=== PATIENT | male | born 1980 ===

== ENCOUNTER 2024-03-31 21:09 | Inpatient (IN) | payer OTHER, SELFPAY ==
--- NOTE | 2024-03-31 21:12 | ECG_ITS ---
Test Date: 2024-03-31 22:02:46 Measurements Intervals [place] Rate: 80 P: 70 WI: 268 QRS: -68 QRSD: 188 T: 77 QT: 479 QTc: 553 Interpretive Statements SINUS RHYTHM WITH FIRST DEGREE AV BLOCK WITH FREQUENT VENTRICULAR PREMATURE COMPLEXES RIGHT BUNDLE BRANCH BLOCK LEFT ANTERIOR FASCICULAR BLOCK LEFT VENTRICULAR HYPERTROPHY AND ST-T CHANGE ABNORMAL ECG No previous ECG available for comparison Electronically Signed On 04-01-2024 06:01:39 CDT by Ervin Dorman D.O.
[2024-03-31 21:55] VITALS: BP 162/100; PULSE 88; RESP 20; TEMP 36.4; O2SAT 98; BMI 36.2
--- NOTE | 2024-03-31 22:31 | ADMGEN ---
This patient, Rock Brunson, was admitted to IMU Room 209-01. Patient/family oriented to hospital policies and general routines including ID bracelet, bed and alarms, visiting hours, pain management, procedures, bathroom and other care routines, personal items, smoking policy, room service/diet, and visiting hours. Information on how to activate the Rapid Response Team has been discussed. Patient/Family are encouraged to report perceived risks to care and to ask questions if they do not understand what they are told or what they should do.
[2024-03-31 22:39] LABS: Basophils Percent Auto 0.2 % (0.2-1.2); Eosinophils Percent Auto 0.1 % (0-4.4); Hematocrit 35.2 % (42.0-52.0); Hemoglobin 11.3 g/dL (14.0-18.0); Immature Granulocyte Absolute 0.13 K/mm3 (0.00-0.031); Immature Granulocyte Percent A 1.1 % (0-0.5); Lymphocytes Percent Auto 10.9 % (18.3-44.2); Mean Corpuscular HGB Conc 32.1 g/dl (32-36); Mean Corpuscular Hemoglobin 26.6 pg (26-34); Mean Corpuscular Volume 82.8 fl (80-100); Mean Platelet Volume 10.8 fl (7.4-10.4); Monocytes Absolute Auto 0.5 K/mm3 (0.1-0.6); Neutrophils Percent Auto 83.7 % (45.5-73.1); Platelet Count Result 255 k/mm3 (150-375); Red Blood Count 4.25 M/mm3 (4.6-6.20); Red Cell Distribution Width 15.5 % (11.5-14.5); White Blood Count 11.9 K/mm3 (4.5-10.0)
[2024-03-31 22:52] LABS: Anion Gap 10 mmol/L (4-12); Blood Urea Nitrogen 32 mg/dL (9-20); Calcium 8.8 mg/dL (8.4-10.2); Carbon Dioxide 23 mmol/L (22-30); Chloride 104 mmol/L (98-107); Estimated CRCL calculation 68 ml/min; Estimated Glomerular Filt Rate 51; Glucose 179 mg/dL (65-110); Potassium 3.6 mmol/L (3.4-5.0); Sodium 137 mmol/L (137-145)
[2024-03-31 22:54] LABS: INR 1.2; Prothrombin Time 15.7 Seconds (11.1-14.7)
[2024-03-31 22:55] LABS: Partial Thromboplastin Time 39.7 Seconds (22.3-36.8)
[2024-03-31 23:00] VITALS: PULSE 94
--- NOTE | 2024-03-31 23:21 | PM.IMHP ---
H&P: HPI History of Present Illness Date/Time: 03/31/24 23:21 Chief Complaint: Non STEMI Narrative: 43-year-old male past medical history of pre diabetes, obesity, untreated obstructive sleep apnea, CHF, non alcoholic steatohepatitis with cirrhosis, chronic kidney disease essential hypertension, hypothyroidism and anemia who presented to the ER at [place] due to chest pain. Patient reports he started having substernal chest pain that was 11/10 in intensity and accompanied by diaphoresis. The pain woken from sleep. He got up and stood in front of the fan but when his symptoms had persisted for about 30 minutes he decided to go to the ER for evaluation. He did have nitroglycerin at home but did not think to take the nitroglycerin. Once he got to the outside ER he received sublingual nitro which immediately improved his pain. His pain did radiate to posterior shoulders bilaterally. His initial troponins at the outside ER were 0.16 and 0.85. He was admitted to the outside hospital for medical management of his coronary artery disease. Several hours after he was admitted to the outside hospital he did have a recurrent episode of chest pain. Pain was substernal in nature and 11/10 in intensity and radiated to both shoulders. It was accompanied by diaphoresis. He reports that his pain was different than the pain that he had in June 2023 when he had a cardiac catheterization with stent placement. He does not know which vessel was stented. He reports that his application specialist is with [facility] (Dr. Tamez). He reports that he has been compliant with his Plavix and 81 mg aspirin. He was supposed be on Eliquis but did not continue taking it due to cost. Given his recurrence of chest pain he was given at therapeutic dose of Lovenox around 18:00 and transfer was arranged. The patient was transferred outside of the hospital system that he usually goes to due to insurance reasons. 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 He also follows with a suture winder hand, and director revenue. His creatinine is usually around 1.5 and has been stable. He denies any urinary symptoms. He reports that a 10 year history of CHF but denies any increased lower extremity swelling from baseline or orthopnea. He had an echocardiogram performed at the outside hospital but results were not yet available for review at the time the patient's transfer. He reports an initial cardiac catheterization back at the initial diagnosis of CHF did not demonstrate any coronary disease. He does have obstructive sleep apnea and had a polysomnogram several years ago. However, he had never followed up to have the CPAP titration. He reports that he had an episode of anemia and suspected GI bleed in October. He had an EGD and colonoscopy following that episode which demonstrated no obvious source of bleeding. He has not had any further hematochezia or melena since that time. He reports that he was hospitalized for about 6 weeks in October due to drug-induced lupus which resulted in pneumonia. He was transferred from [place] to [facility] then [facility] and then eventually transferred to [place] where he was hospitalized for an additional 2 weeks. He reports that his symptoms the resulted in hospitalization have resolved. He denies any significant shortness of breath, cough or congestion. Denies any fevers or chills. He was recently prescribed Augmentin on the but did not state why he had been placed on antibiotics. He has not had a recurrence of chest pain since transferred to our facility. His troponins have trended downward since arrival. Patient's hemoglobin outside facility was 11.5 hemoglobin was 11 platelet count was 222 INR was normal at 1.2 potassium was normal at 3.7 creatinine was stable at 1.5 glucose was elevated at 190. EKG and also facility was reviewed demonstrated right bund
[2024-04-01] VITALS (45 sets, daily range): BP systolic 132–181; BP diastolic 84–139; PULSE 68–94; RESP 10–25; TEMP 36.3–36.6; O2SAT 95–100
[2024-04-01 04:44] LABS: Cholesterol 211 mg/dL (0-200); HDL Direct 33 mg/dL; Triglycerides 173 mg/dL (<150)
[2024-04-01 04:55] LABS: LDL Cholesterol Direct 138 mg/dL
[2024-04-01 05:13] LABS: Hemoglobin A1C 5.2 % (<5.7)
[2024-04-01] MEDS: amLODIPine BESYLATE 5 MG TABLET PO (08:05)
[2024-04-01] MEDS: CLOPIDOGREL BISULFATE 75 MG TABLET PO (08:06)
[2024-04-01] MEDS: SPIRONOLACTONE 25 MG TABLET PO ×2 (08:06→17:58)
[2024-04-01] MEDS: carvediloL 25 MG TABLET PO ×2 (08:06→20:57)
[2024-04-01] MEDS: buPROPion HCL XL (24 HR) 150 MG TABCR PO (08:07)
[2024-04-01] MEDS: ISOSORBIDE MONONITRATE 30 MG TAB.ER.24H PO (08:07)
[2024-04-01] MEDS: PANTOPRAZOLE 40 MG TABLET PO (08:07)
[2024-04-01] MEDS: FUROSEMIDE 40 MG TABLET PO (08:08)
[2024-04-01] MEDS: PARoxetine 20 MG TABLET 40 MG PO (08:08)
[2024-04-01] MEDS: LOSARTAN POTASSIUM 100 MG TABLET PO (08:08)
[2024-04-01] MEDS: ATORVASTATIN 10 MG TABLET PO (08:09)
[2024-04-01 08:37] LABS: Basophils Percent Auto 0.2 % (0.2-1.2); Eosinophils Percent Auto 0.1 % (0-4.4); Hematocrit 38.2 % (42.0-52.0); Hemoglobin 11.6 g/dL (14.0-18.0); Immature Granulocyte Absolute 0.08 K/mm3 (0.00-0.031); Immature Granulocyte Percent A 0.6 % (0-0.5); Lymphocytes Absolute Auto 1.04 K/mm3 (0.9-3.2); Lymphocytes Percent Auto 8.3 % (18.3-44.2); Mean Corpuscular HGB Conc 30.4 g/dl (32-36); Mean Corpuscular Hemoglobin 25.6 pg (26-34); Mean Corpuscular Volume 84.3 fl (80-100); Mean Platelet Volume 12.8 fl (7.4-10.4); Monocytes Absolute Auto 0.7 K/mm3 (0.1-0.6); Monocytes Percent Auto 5.3 % (2.6-8.5); Neutrophils Absolute Auto 10.7 K/mm3 (1.3-6.7); Neutrophils Percent Auto 85.5 % (45.5-73.1); Platelet Count Result 252 k/mm3 (150-375); Red Blood Count 4.53 M/mm3 (4.6-6.20); Red Cell Distribution Width 15.4 % (11.5-14.5); White Blood Count 12.5 K/mm3 (4.5-10.0)
[2024-04-01 09:10] LABS: Alanine Aminotransferase 10 U/L (6-50); Albumin Level 3.5 g/dL (3.5-5.1); Alkaline Phosphatase 85 U/L (38-126); Anion Gap 9 mmol/L (4-12); Aspartate Amino Transferase 20 U/L (17-59); Bilirubin,Total 0.4 mg/dL (0.2-1.3); Blood Urea Nitrogen 33 mg/dL (9-20); Calcium 8.8 mg/dL (8.4-10.2); Carbon Dioxide 24 mmol/L (22-30); Chloride 105 mmol/L (98-107); Estimated CRCL calculation 68 ml/min; Estimated Glomerular Filt Rate 51; Glucose 130 mg/dL (65-110); Magnesium 2.4 mg/dL (1.6-2.3); Phosphorus 4.4 mg/dL (2.5-4.5); Sodium 138 mmol/L (137-145)
--- NOTE | 2024-04-01 11:36 | PM.CNCAR ---
Assessment and Plan Assessment and plan (1) Non-STEMI (non-ST elevated myocardial infarction): Code(s): I21.4 - Non-ST elevation (NSTEMI) myocardial infarction Status: Acute Plan 43-year-old man with apparent history of diastolic dysfunction some episodes of congestive heart failure and a history of coronary disease with a stent procedure done at [facility] about 9 months ago. 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 The cardiac issue at hand is his chest pain and troponin elevation. For this reason I will recommend bringing him for a follow-up coronary angiography g today and hopefully we will not see evidence of InStent stenosis or thrombosis. Further recommendations will be forthcoming the angiograms. Steven Mahan MD [facility] History of Present Illness History of Present Illness Consult date/time: 04/01/24 11:36 Reason For Visit: NSTEMI Narrative: This is a very pleasant 43-year-old man who has a rather complex medical history I am seeing at the request of the hospitalist because of chest pain and elevation in his troponin level. Patient is unknown to me prior to this admission I do not believe he has ever been at [facility] in the past. He has a history of coronary artery disease and has a tanning salon attendant elsewhere manages his case. He says that he has had a number of and admissions to the hospital with congestive heart failure in the last year or so. During 1 of these admissions he remembers in June of 2023 was brought to the cardiac catheterization lab at [facility] where he underwent a coronary stent procedure we do not have any records of that nor does he have any information about the details of that procedure. 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 and at [facility]. He also has a history of amyloidosis as a documented by a fat-pad biopsy while he was at [place]. I do not have all the details regarding that because of this he does have chronic renal insufficiency his creatinine is 1.5 which looks like it is about had at his baseline. His physicians that care for him are not here at [facility] he has a textile scrap salvager at [place] that is involved his and management of a drug-induced SLE. One of his recent admissions was complicated by significant anemia that required a red blood cells. Records do indicate that he had an episode of atrial fibrillation in the past presumably when he was 1 of the hospitals but that he is not anticoagulated because of the anemia. The patient states that yesterday he was at his home when he began to experience a couple of episodes of pain he is describes as a pressure-like sensation in the retrosternal region associated with some diaphoresis and radiation to the shoulders. He had a 2nd episode like this to the emergency room [place] for evaluation. When he had a recurrent episode that required nitroglycerin and his troponin levels were somewhat elevated he was transferred here to [facility] for further evaluation and management. I am not sure why he was transferred here as none of his previous medical care or certainly is cardiovascular care were delivered at this hospital. his electrocardiogram demonstrates sinus rhythm with right bundle branch block and is unchanged from ECGs from [facility] in October of this year. Troponin levels were elevated at 2.3, 2.0 and 1.8. Review of Systems Constitutional: Constitutional: Reports lethargy Eyes: Eyes: Reports no additional eye complaints ENT: Reports system reviewed and no additional complaints, except as documented Cardiovascular: Cardiovascular: Reports as per HPI and Reports chest pain Respiratory: Respiratory: Reports no additional respiratory complaints Genitourinary:
[2024-04-01] MEDS: ASPIRIN 81 MG ENTERIC TABLET PO (12:38)
--- NOTE | 2024-04-01 12:39 | PC.NURSE ---
pt has been up to br, all extra clothing is off in prep for card cath
--- NOTE | 2024-04-01 13:00 | PC.NURSE ---
pt taken down to card cardiac cath lab technologist
--- NOTE | 2024-04-01 13:49 | WPDCARDPROC ---
Cardiac Cath Procedure Note Date of procedure:: 04/01/24 Performing physician:: Steven Mahan MD Indication:: coronary artery disease with previous PCI chest pain with troponin elevation/non STEMI Brief clinical history:: this is a 43-year-old man with a history of coronary disease with stenting of his LAD about 9 months ago. None of his medical care is provided at this hospital. He presented here with chest pain in transfer from a referring hospital because of elevation of troponin. He also has recent diagnosis of drug-induced lupus with renal insufficiency and evidence of amyloidosis as well. In this setting a follow-up angiogram has been recommended Procedure Procedure performed:: coronary angiography IFR of the LAD Sedation/Medication given:: fentanyl 50 mg Versed 2 mg case start 1323 PM case end time 1:46 p.m. Access site:: right femoral artery Estimated blood loss:: 20 cc Procedure note:: patient was brought to the cardiac catheterization lab in the postabsorptive state where the right femoral triangle was prepared and draped in the normal fashion. Anesthesia was provided with 1% lidocaine infiltrated locally. Using the modified Seldinger technique the right femoral artery was punctured and a 5 Nigerian vascular sheath was placed. I then utilized a 5 Nigerian FL4 catheter to engage inject the left coronary artery in multiple projections. The right coronary artery was engaged and injected using a JR4 catheter in orthogonal projections. Following this the cineangiograms were reviewed. I elected to recommended perform IFR of the LAD. For this the 5 Nigerian sheath was changed out over guidewire for a 6 Nigerian sheath. The IFR was as detailed below was carried out using a 6 Nigerian CLS 3.5 guiding catheter and a bolus of Angiomax for procedural anticoagulation. Following completion of IFR the case was terminated an angiogram was performed to the femoral artery through the sheath after which I determined to have the sheath removed with direct manual compression. Patient tolerated procedure well there were no apparent complications. He left the director of labor and delivery with no sign of groin hematoma. Findings:: Hemodynamics: Central aortic pressure is 1 48/96. The left ventricle was not entered during this procedure the left main coronary artery is large in caliber and is widely patent the left anterior descending is a moderate to large caliber artery extending down to the apex. There is visible stent material in the proximal LAD with minimal loss of lumen. At the terminal, distal margin of the stent there is mild to moderate stenosis which in most views appears to be minimal in some views appears to be 50-60% stenosis. The 1st septal perforating complex takes its origin in the stented segment the ostium of this vessel has a proximal 80-90% lesion. This vessel is jailed by the stent. The circumflex is a large caliber vessel giving rise to the marginal branches. The circumflex is angiographically free of disease. The right coronary artery is large caliber and dominant to the posterior circulation. The right coronary is also angiographically free of disease. The coronary IFR was measured on 3 runs with identical measurements of 0.92 Conclusion:: 1. right coronary dominant circulation with previous stenting of the LAD about 9 months ago as described above. 2. Mild stenosis of distal margin LAD stent is not flow-limiting based on INR of 0.92 3. 80-90% stenosis of the ostium of the 1st septal perforating complex which is jailed by the LAD stent. Steven Mahan MD [facility]
--- NOTE | 2024-04-01 15:38 | PM.IMPN ---
Progress Note: A&P Assessment and Plan (1) Non-STEMI (non-ST elevated myocardial infarction): Code(s): I21.4 - Non-ST elevation (NSTEMI) myocardial infarction Status: Acute Assessment and Plan: Patient presented with chest pain and troponin elevation consistent with non STEMI. Troponin peaked at 2.36. Cardiology was consulted. Patient received therapeutic Lovenox at the outside facility and this was continued. Patient has been made NPO until evaluated by Cardiology. We continued patient's home Plavix, ASA and statin therapy. Left heart catheterization showin. right coronary dominant circulation with previous stenting of the LAD about 9 months ago as described above. 2. Mild stenosis of distal margin LAD stent is not flow-limiting based on INR of 0.92 3. 80-90% stenosis of the ostium of the 1st septal perforating complex which is jailed by the LAD stent. Plan for aggressive medical management (2) Essential hypertension: Code(s): I10 - Essential (primary) hypertension Status: Acute Assessment and Plan: Patient's blood pressure was reviewed on 04/01 Blood pressure remains poorly controlled. Will adjust current medications if BP remains elevated since pain and anxiety could be contributing to his elevated BP. (3) Hyperglycemia: Code(s): R73.9 - Hyperglycemia, unspecified Status: Acute Assessment and Plan: Patient reports history of pre diabetes. His glucoses from the outside facility were elevated and his glucose on his electrolyte panel on arrival here was also elevated. A1c 5.2. The patient's blood glucose was reviewed on 04/01 Glucose better controlled. Continue to follow (4) Hypothyroidism: Qualifiers: Hypothyroidism type: unspecified Qualified Code(s): E03.9 - Hypothyroidism, unspecified Code(s): E03.9 - Hypothyroidism, unspecified Status: Acute Assessment and Plan: Will continue patient's home levothyroxine. Check TSH (5) Chronic kidney disease: Qualifiers: Chronic kidney disease stage: stage 2 (mild) Qualified Code(s): N18.2 - Chronic kidney disease, stage 2 (mild) Code(s): N18.9 - Chronic kidney disease, unspecified Status: Acute Assessment and Plan: Patient's kidney function appears stable compared to baseline labs obtained from outside facility. Will continue to monitor strict I&O's. Will avoid nephrotoxic medications if possible. (6) CHF (congestive heart failure): Qualifiers: Heart failure chronicity: chronic Heart failure type: unspecified Qualified Code(s): I50.9 - Heart failure, unspecified Code(s): I50.9 - Heart failure, unspecified Status: Acute Assessment and Plan: Patient does have a history of CHF and does not have evidence of acute exacerbation. Will continue home Lasix and spironolactone. (7) Mixed hyperlipidemia: Code(s): E78.2 - Mixed hyperlipidemia Status: Acute Assessment and Plan: Patient is unsure of when his last lipid panel was performed thus lipid panel was obtained which demonstrated mixed hyperlipidemia. We continued patient's home Lipitor (8) Obstructive sleep apnea: Code(s): G47.33 - Obstructive sleep apnea (adult) (pediatric) Status: Acute Assessment and Plan: Patient does have history of obstructive sleep apnea but never followed up with CPAP titration. Patient would benefit from repeat sleep study he with CPAP titration as this would reduce strain on patient's cardiovascular system. 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 Will continue home Protonix. Patient's hemoglobin is stable. Will continue spironolactone for the patient's history of cirrhosis. He
[2024-04-01] MEDS: METOPROLOL TARTRATE INJ 5 MG/5 ML VIAL IV PUSH (15:49)
--- NOTE | 2024-04-01 16:45 | PC.NURSE ---
phlebotomy lab assistant called with update on pt, no stents placed, R fem site with dressing, bp high so pt was given 5mg lopressor in post, daniels placed in phlebotomy lab assistant 16F, sheath pulled at 1630
--- NOTE | 2024-04-01 17:53 | PC.NURSE ---
pt has returned from refuse laborer
[2024-04-01] MEDS: FERROUS SULFATE 325 MG TABLET DR PO (17:58)
[2024-04-01] MEDS: DOXAZOSIN MESYLATE 4 MG TABLET 16 MG PO (20:57)
[2024-04-02] VITALS (8 sets, daily range): BP systolic 140–181; BP diastolic 77–109; PULSE 64–83; RESP 16–18; TEMP 36.4–36.6; O2SAT 99–100
[2024-04-02 05:16] LABS: Basophils Percent Auto 0.2 % (0.2-1.2); Eosinophils Percent Auto 0.3 % (0-4.4); Hematocrit 35.4 % (42.0-52.0); Hemoglobin 10.6 g/dL (14.0-18.0); Immature Granulocyte Absolute 0.09 K/mm3 (0.00-0.031); Lymphocytes Absolute Auto 1.38 K/mm3 (0.9-3.2); Mean Corpuscular HGB Conc 29.9 g/dl (32-36); Mean Corpuscular Hemoglobin 25.7 pg (26-34); Mean Corpuscular Volume 85.7 fl (80-100); Mean Platelet Volume 11.2 fl (7.4-10.4); Monocytes Absolute Auto 0.7 K/mm3 (0.1-0.6); Monocytes Percent Auto 7.6 % (2.6-8.5); Neutrophils Percent Auto 75.9 % (45.5-73.1); Platelet Count Result 232 k/mm3 (150-375); Red Blood Count 4.13 M/mm3 (4.6-6.20); Red Cell Distribution Width 15.4 % (11.5-14.5); White Blood Count 9.2 K/mm3 (4.5-10.0)
[2024-04-02 05:26] LABS: Albumin Level 3.5 g/dL (3.5-5.1); Anion Gap 7 mmol/L (4-12); Blood Urea Nitrogen 33 mg/dL (9-20); Calcium 8.9 mg/dL (8.4-10.2); Carbon Dioxide 28 mmol/L (22-30); Chloride 106 mmol/L (98-107); Estimated CRCL calculation 68 ml/min; Estimated Glomerular Filt Rate 51; Glucose 91 mg/dL (65-110); Magnesium 2.5 mg/dL (1.6-2.3); Phosphorus 4.2 mg/dL (2.5-4.5); Sodium 141 mmol/L (137-145)
[2024-04-02 05:41] LABS: Platelet Estimate Adequate (Adequate)
[2024-04-02 05:42] LABS: Anisocytosis 1+; Schistocytes Rare; Tear Drop Cells 1+
[2024-04-02] MEDS: LEVOTHYROXINE SODIUM 25 MCG TABLET PO (06:16)
[2024-04-02 07:10] LABS: Free T4 Free Thyroxine Reflex 0.78 ng/dL (0.78-2.19)
[2024-04-02 08:21] LABS: Total Triiodothyronine (T3) 0.92 NG/ML (0.97-1.69)
--- NOTE | 2024-04-02 09:16 | PM.PNCARD ---
Progress Note: A&P Assessment and Plan (1) Non-STEMI (non-ST elevated myocardial infarction): Code(s): I21.4 - Non-ST elevation (NSTEMI) myocardial infarction Status: Acute Assessment and Plan: Catheterization yesterday showing jailed septal branch. Moderate disease in the LAD which was IFR negative. Medical management at this point is recommended. Continue aspirin, Plavix, atorvastatin, carvedilol, losartan. Will increase as sore a mononitrate to 60 mg daily. (2) Chronic kidney disease: Qualifiers: Chronic kidney disease stage: stage 2 (mild) Qualified Code(s): N18.2 - Chronic kidney disease, stage 2 (mild) Code(s): N18.9 - Chronic kidney disease, unspecified Status: Acute Assessment and Plan: Creatinine stable at present. (3) Obstructive sleep apnea: Code(s): G47.33 - Obstructive sleep apnea (adult) (pediatric) Status: Acute Assessment and Plan: Need CPAP treatment to be set up as outpatient (4) Essential hypertension: Code(s): I10 - Essential (primary) hypertension Status: Acute Assessment and Plan: BP significantly elevated this morning. Continue amlodipine, carvedilol, losartan, spironolactone. He is on multiple medications. Could consider renal denervation as an outpatient but will defer to his primary mail truck driver/PCP for referral Plan Okay for discharge from cardiac perspective. Follow-up with patient's primary mail truck driver and [facility] later this week Subjective Date/time seen: 04/02/24 09:16 Interval history: 43yo male with pre diabetes, obesity, untreated obstructive sleep apnea, CHF, non alcoholic steatohepatitis with cirrhosis, chronic kidney disease, essential hypertension, hypothyroidism and anemia who presented to the ER at [place] due to chest pain. Date of service 04/02/2024: Catheterization yesterday as below 1. right coronary dominant circulation with previous stenting of the LAD about 9 months ago as described above. 2. Mild stenosis of distal margin LAD stent is not flow-limiting based on INR of 0.92 3. 80-90% stenosis of the ostium of the 1st septal perforating complex which is jailed by the LAD stent. Feels okay. No groin pain. No chest pain. No shortness breath Review of Systems Constitutional: Constitutional: Reports lethargy Eyes: Eyes: Reports no additional eye complaints ENT: Reports system reviewed and no additional complaints, except as documented Cardiovascular: Cardiovascular: Reports as per HPI and Reports chest pain Respiratory: Respiratory: Reports no additional respiratory complaints Gastrointestinal: Gastrointestinal: Denies abdominal pain Genitourinary: Genitourinary: Reports no additional male genitourinary complaints Musculoskeletal: Musculoskeletal: Reports myalgias Integumentary/Breasts: Skin/Breast: Reports system reviewed and no additional complaints, except as docu Neurologic: Reports system reviewed and no additional complaints, except as documented Endocrine: Endocrine: Reports no additional endocrine complaints Hematologic/Lymphatic: Hematologic/Lymphatic: Reports as per HPI Allergic/Immunologic: Allergic/Immunologic: Reports no additional allergic/immunologic complaints Exam Const: General: comfortable Other: Relatively healthy-appearing white male overweight with BMI of 36 comfortable cooperative no distress HENMT: Mouth: Yes moist mucous membranes Eyes: Sclera: sclerae normal Neck: Neck: supple and no JVD Resp: Effort & Inspection: normal respiratory effort Auscultation: clear to auscultation bilaterally Cardio: Rate: regular rate Rhythm: regular rhythm GI: Auscultation: normal bowel sounds Skin: General skin exam: normal color Neuro: Speech: normal speech Other: alert and oriented x3 Extrem: Other: no edema, good pulses Right groin is free of hematoma, ecchymosis or bruit. Psych: Affec
[2024-04-02] MEDS: FUROSEMIDE 40 MG TABLET PO (09:24)
[2024-04-02] MEDS: ASPIRIN 81 MG ENTERIC TABLET PO (09:24)
[2024-04-02] MEDS: LOSARTAN POTASSIUM 100 MG TABLET PO (09:24)
[2024-04-02] MEDS: SPIRONOLACTONE 25 MG TABLET PO (09:24)
[2024-04-02] MEDS: PANTOPRAZOLE 40 MG TABLET PO (09:24)
[2024-04-02] MEDS: PARoxetine 20 MG TABLET 40 MG PO (09:24)
[2024-04-02] MEDS: ATORVASTATIN 10 MG TABLET PO (09:24)
[2024-04-02] MEDS: carvediloL 25 MG TABLET PO (09:24)
[2024-04-02] MEDS: amLODIPine BESYLATE 5 MG TABLET PO (09:25)
[2024-04-02] MEDS: buPROPion HCL XL (24 HR) 150 MG TABCR PO (09:25)
[2024-04-02] MEDS: CLOPIDOGREL BISULFATE 75 MG TABLET PO (09:25)
--- NOTE | 2024-04-02 12:29 | PM.DS ---
DS: Admitting Diagnosis Discharge Date 04/02/24 Admitting Diagnosis Chest pain DS: Discharge Diagnosis Discharge Diagnosis (1) Non-STEMI (non-ST elevated myocardial infarction): Code(s): I21.4 - Non-ST elevation (NSTEMI) myocardial infarction Status: Acute (2) Essential hypertension: Code(s): I10 - Essential (primary) hypertension Status: Acute (3) Hyperglycemia: Code(s): R73.9 - Hyperglycemia, unspecified Status: Acute (4) Hypothyroidism: Qualifiers: Hypothyroidism type: unspecified Qualified Code(s): E03.9 - Hypothyroidism, unspecified Code(s): E03.9 - Hypothyroidism, unspecified Status: Acute (5) Chronic kidney disease: Qualifiers: Chronic kidney disease stage: stage 2 (mild) Qualified Code(s): N18.2 - Chronic kidney disease, stage 2 (mild) Code(s): N18.9 - Chronic kidney disease, unspecified Status: Acute (6) CHF (congestive heart failure): Qualifiers: Heart failure type: unspecified Heart failure chronicity: chronic Qualified Code(s): I50.9 - Heart failure, unspecified Code(s): I50.9 - Heart failure, unspecified Status: Acute (7) Mixed hyperlipidemia: Code(s): E78.2 - Mixed hyperlipidemia Status: Acute (8) Obstructive sleep apnea: Code(s): G47.33 - Obstructive sleep apnea (adult) (pediatric) Status: Acute (9) 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 Please see H&P for details. Hospital Course: Patient presented with chest pain and troponin elevation consistent with non STEMI. Troponin peaked at 2.36. Cardiology was consulted. Patient received therapeutic Lovenox at the outside facility and this was continued. We continued patient's home Plavix, ASA and statin therapy. Left heart catheterization showin. right coronary dominant circulation with previous stenting of the LAD about 9 months ago as described above. 2. Mild stenosis of distal margin LAD stent is not flow-limiting based on INR of 0.92 3. 80-90% stenosis of the ostium of the 1st septal perforating complex which is jailed by the LAD stent. Plan for aggressive medical management and medications adjusted. Blood pressure remained poorly controlled. We adjusted his medications and blood pressure better. Patient reports history of pre diabetes. His glucoses from the outside facility were elevated and his glucose on his electrolyte panel on arrival here was also elevated. A1c 5.2. The patient's blood glucose improved. Patient has hx of hypothyroidism but has been out of his levothyroxine. TSH 10.5. We continued patient's home levothyroxine and will refill at discharge. Patient with CKD and his kidney function appears stable compared to baseline labs obtained from outside facility. He tolerated the cntrast exposure. Patient does have a history of CHF and does not have evidence of acute exacerbation. We continued home Lasix and spironolactone. Patient does have history of obstructive sleep apnea but never followed up with CPAP titration. Patient would benefit from repeat sleep study with CPAP titration as this would reduce strain on patient's cardiovascular system. This was explained and he voices understanding. He is planning on following up with Pulmonary and will set up this appointment after discharge. Patient had recent anemia assumed to be due to GI bleed. We continued home Protonix. Patient's hemoglobin is stable. We continued spironolactone for the patient's history of cirrhosis. He appe
== END 2024-04-02 13:45 | disposition home or self-care (01) | DRG 192 ==
PROVIDERS: Specialist; Admitting Provider Internal Medicine; Visit Provider Internal Medicine
PROC: 4A023N7 Measurement of Cardiac Sampling and Pressure, Left Heart, Percutaneous Approach (ICD-10-PCS; CPT 93454; principal; 2024-04-01 12:30)
PROC: 4A033BC Measurement of Arterial Pressure, Coronary, Percutaneous Approach (ICD-10-PCS; CPT 93571; 2024-04-01 12:30)
DX: T82.855A Stenosis of coronary artery stent, initial encounter (principal); I21.4 Non-ST elevation (NSTEMI) myocardial infarction; T82.897A Other specified complication of cardiac prosthetic devices, implants and grafts, initial encounter; I25.10 Atherosclerotic heart disease of native coronary artery without angina pectoris; I34.0 Nonrheumatic mitral (valve) insufficiency; I13.0 Hypertensive heart and chronic kidney disease with heart failure and stage 1 through stage 4 chronic kidney disease, or unspecified chronic kidney disease; I50.9 Heart failure, unspecified; N18.2 Chronic kidney disease, stage 2 (mild); K74.60 Unspecified cirrhosis of liver; K75.81 Nonalcoholic steatohepatitis (NASH); E66.9 Obesity, unspecified; E03.9 Hypothyroidism, unspecified; M32.0 Drug-induced systemic lupus erythematosus; R73.03 Prediabetes; G47.33 Obstructive sleep apnea (adult) (pediatric); F41.9 Anxiety disorder, unspecified; Y71.2 Prosthetic and other implants, materials and accessory cardiovascular devices associated with adverse incidents; Z95.5 Presence of coronary angioplasty implant and graft; Z79.82 Long term (current) use of aspirin; Z79.02 Long term (current) use of antithrombotics/antiplatelets
CPT/HCPCS: 36415; 80048; 80053; 80061; 80069; 83036; 83735; 84100; 84439; 84443; 84480; 84484; 85025; 85610; 85730; 93005; 93454; 93571; A9270; C1769; C1887; C1894; G0378; G0379; J0583; J1644; J2250; J3010; J7040